=== PATIENT | male | born 1985 | race Asian ===

== ENCOUNTER → 2016-05-28 | Outpatient (CLI) | payer BC ==
[~2016-05-28] MED LIST: PHENERGAN12.5 MG PO; PRILOSEC20 MG PO; ROXICODONE5 MG PO
[2016-05-28 14:30] LABS: BASOPHIL# 0.1 X10e3 (0-0.3); BASOPHIL% 0.8 % (0-2.5); DIFF IND NO; EOSINOPHIL# 0.2 X10e3 (0-0.7); EOSINOPHIL% 2.1 % (0.0-7.0); HEMATOCRIT 49.3 % (38.0-50.0); HEMOGLOBIN 16.7 gm/dL (13.0-16.0); LYMPHOCYTE# 1.9 X10e3 (1.0-3.5); MEAN CELL VOLUME 86.7 FL (83-96); MEAN CORPUSCULAR HEMOGLOBIN 29.4 PG (28-34); MEAN CORPUSCULAR HGB CONC 33.8 g/dL (30-36); MEAN PLATELET VOLUME 7.6 FL (6.5-11.5); MONOCYTE# 0.5 X10e3 (0-1.0); MONOCYTE% 6.5 % (3.0-12.0); NEUTROPHIL# 5.7 X10e3 (1.5-7.1); NEUTROPHIL% 67.6 % (40-75); PLATELET COUNT 249 X10e3 (140-420); RED BLOOD COUNT 5.69 X10e (3.90-5.60); RED CELL DISTRIBUTION WIDTH 12.6 % (11.0-15.5); WHITE BLOOD COUNT 8.4 X10e3 (4.0-10.5)
[2016-05-28 14:58] LABS: ALBUMIN SERUM 4.5 g/dL (3.5-5.0); BILIRUBIN,TOTAL 0.8 mg/dL (0.2-2.0); BUN/CREATININE RATIO 18.33; CALCIUM SERUM 9.2 mg/dL (8.4-10.2); CREATININE SERUM 0.6 mg/dL (0.6-1.4); GLOM FILT RATE Estimated 132.2 mL/min (>60); POTASSIUM 3.7 mmol/L (3.5-5.1); PROTEIN TOTAL SERUM 7.4 g/dL (6.0-8.3)
== END | disposition home or self-care (01) ==
LOC: CLAB 14:10
PROVIDERS: Internal Medicine
DX: B19.10 Unspecified viral hepatitis B without hepatic coma (principal)
CPT/HCPCS: 36415; 80053; 82105; 85025

== ENCOUNTER → 2016-06-09 | Outpatient (CLI) | payer BC ==
--- NOTE | ~2016-06-09 | US6 ---
[facility] A Service of [facility] RADIOLOGY TEXT RESULTS PATIENT: GEO MAX LOCATION: [facility] : 81 UNIT #: [id number] AGE: [address]: Maged Bolaños MD SEX: M ORDER DR: [id number] [facility] [place], [place] [address] [id number] O MR#: [id number] Acc #: [id number] NAME: GEO MAX : 1985 SEX: M STUDY DATE/TIME: 06/09/2016 10:33 UNIT: [facility] ROOM: STUDY DESCRIPTION: US Abdominal Limited Attending Physician: Maged Bolaños M.D. Referring Physician: Maged Bolaños M.D. Ordering Physician: Maged Bolaños M.D. Primary Care Physician: No Primary Care Physician MEDICAL IMAGING REPORT This report is preliminary unless electronic signature is present EXAM Right upper quadrant ultrasound. INDICATION Right upper quadrant pain for 2 weeks. Patient has history of hepatitis B and apparently has had a liver resection which was performed in 2014. TECHNIQUE Ernst-scale and color Doppler sonographic images obtained through the right upper quadrant. FINDINGS Pancreas appears unremarkable. Liver is homogeneous in echotexture. No focal hepatic lesions are seen and there is no intra or extrahepatic biliary dilatation. Main portal vein is patent with hepatopetal flow. Gallbladder does not contain any stones or sludge. There is no gallbladder wall thickening or pericholecystic fluid. Right kidney is normal in appearance with no solid or cystic renal masses seen and no hydronephrosis identified. IMPRESSION Normal right upper quadrant ultrasound. Dictated by... Jackeline Plummer M.D. THIS IS AN ELECTRONICALLY VERIFIED REPORT Jackeline Plummer M.D. at 06/10/2016 2:05 PM AFF/tmw TD: 06/09/2016 15:28 [facility] A Service [facility] RADIOLOGY TEXT RESULTS PATIENT: GEO MAX LOCATION: [facility] #: [id number] : [birth year] UNIT #: [id number] AGE: [address]: Maged Bolaños MD SEX: M ORDER DR: JOB #: [id number] MEDICAL IMAGING REPORT Page 1 of 1 COPY
== END | disposition home or self-care (01) ==
LOC: CGUS 09:39
DX: B19.10 Unspecified viral hepatitis B without hepatic coma (principal)
CPT/HCPCS: 76705